=== PATIENT | female | born 1995 | race Caucasian/White ===

== ENCOUNTER 2021-01-29 07:50 | Emergency (ER) | payer MEDICAID ==
[2021-01-29 10:16] LABS: Bacteria,Urine 2+ /HPF (Negative); Bilirubin,Urine NEG (Negative); Blood,Urine NEG (Negative); Color,Urine Yellow (Yellow); Mucus,Urine 1+ /HPF; Protein,Urine <15 mg/dL mg/dL (Negative)
[2021-01-29 10:19] LABS: HCG Qualitative,Urine Negative (Negative)
[2021-01-29] MEDS ORDERED: LIDOCAINE-MPF (1%) 10 MG/1 ML VIAL 5 ML INFILTRATI ONE (10:22)
--- NOTE | 2021-01-29 10:27 | Emergency Department Report ---
ED General Adult HPI - General Chief complaint: Urogenital-Female Stated complaint: NAUSEA/VAGINAL DISCHARGE Time Seen by Provider: 01/29/21 10:21 Source: patient Mode of arrival: Ambulatory Limitations: No Limitations - History of Present Illness Initial comments: 25-year-old female patient presents with complaints of nausea without vomiting x1 month. She denies any history of GERD or heartburn symptoms, stool changes/melena/hematochezia, or abdominal pain. She states the nausea is intermittent, however she is still able to eat and drink. No alcohol abuse per patient. She also states her boyfriend tested positive for chlamydia and gonorrhea. She reports she has been having lower abdominal cramping and abnormal vaginal discharge for the past 2 weeks. No dyspareunia, vaginal bleeding, dysuria/hematuria/urinary frequency, or fever per patient. She also denies any past medical history - Related Data Previous Rx's Medication Instructions Recorded Last Taken Type Ferrous Sulfate [Feosol 325 MG tab] 325 mg PO BID #60 tablet 05/04/13 1 Week Ago Rx ~01/09/18 [id number]/Iron Fum/Folic/Docusate 1 each PO QDAY #30 tablet 05/04/13 1 Month Ago Rx [ 19 Tablet] ~12/16/17 Ferrous Sulfate [Feosol 325 MG tab] 325 mg PO BID #60 tablet 01/16/18 Unknown Rx HYDROcodone/APAP 5-325 [[place] 1 each PO Q6HR PRN #30 tablet 01/16/18 Unknown Rx 5/325] Ibuprofen [Motrin] 800 mg PO Q8HR PRN #30 tablet 01/16/18 Unknown Rx Vit Calc,Iron,Folic 1 each PO DAILY #30 tablet 01/16/18 Unknown Rx [ Vitamins] Doxycycline Monohydrate 100 mg PO BID 14 Days #28 tablet 01/29/21 Unknown Rx Famotidine [Pepcid] 20 mg PO BID 10 Days #20 tablet 01/29/21 Unknown Rx Ondansetron [Zofran Odt] 4 mg PO Q8HR PRN #15 tab.rapdis 01/29/21 Unknown Rx metroNIDAZOLE [Flagyl TAB] 500 mg PO Q12HR 7 Days #14 tab 01/29/21 Unknown Rx Allergies Allergy/AdvReac Type Severity Reaction Status Date / Time sulfamethoxazole AdvReac Hives Verified 01/29/21 09:15 [From Bactrim] trimethoprim [From Bactrim] AdvReac Hives Verified 01/29/21 09:15 ED Review of Systems ROS: Stated complaint: NAUSEA/VAGINAL DISCHARGE Other details as noted in HPI Constitutional: denies: chills, diaphoresis, fever, malaise Respiratory: denies: cough, shortness of breath Gastrointestinal: as per HPI, nausea. denies: vomiting, diarrhea, constipation Genitourinary: discharge. denies: urgency, dysuria, frequency, hematuria, abnormal menses, dyspareunia Musculoskeletal: denies: joint swelling, arthralgia Skin: denies: rash, lesions, change in color Neurological: denies: numbness, paresthesias Hematological/Lymphatic: denies: swollen glands ED Past Medical Hx - Past Medical History Hx Hypertension: No Hx Heart Attack/AMI: No Hx Congestive Heart Failure: No Hx Diabetes: No Hx Deep Vein Thrombosis: No Hx Pulmonary Embolism: No Hx Liver Disease: No Hx Renal Disease: No Hx Sickle Cell Disease: No Hx Headaches / Migraines: No Hx Seizures: No Hx Asthma: No Hx COPD: No Hx Tuberculosis: No Hx HIV: No - Social History Smoking Status: Never Smoker - Medications Home Medications: Home Medications Medication Instructions Recorded Confirmed Last Taken Type Ferrous Sulfate [Feosol 325 MG tab] 325 mg PO BID #60 tablet 05/04/13 01/16/18 1 Week Ago Rx ~01/09/18 [id number]/Iron Fum/Folic/Docusate 1 each PO QDAY #30 tablet 05/04/13 01/16/18 1 Month Ago Rx [ 19 Tablet] ~12/16/17 Ferrous Sulfate [Feosol 325 MG tab] 325 mg PO BID #60 tablet 01/16/18 Unknown Rx HYDROcodone/APAP 5-325 [[place] 1 each PO Q6HR PRN #30 tablet 01/16/18 Unknown Rx 5/325] Ibuprofen [Motrin] 800 mg PO Q8HR PRN #30 tablet 01/16/18 Unknown Rx Vit Calc,Iron,Folic 1 each PO DAILY #30 tablet 01/16/18 Unknown Rx [ Vitamins] Doxycycline Monohydrate 100 mg PO BID 14 Days #28 tablet 01/29/21 Unknown Rx Famotidine [Pepcid] 20 mg PO BID 10 Days #20 tablet 01/29/21 Unknown Rx Ondansetron [Zofran Odt] 4 mg PO Q8HR PRN #15 tab.rapdis 01/29/21 Unknown Rx metroNIDAZOLE [Flagyl TAB] 500 mg PO Q12HR 7 Days #14 tab 01/29/21 Unknown Rx ED Physical Exam - General Limitations: No Limitations General appearance: alert, in no apparent distress - Head Head exam: Present: atraumatic, normocephalic - Eye Eye exam: Present: normal appearance. Absent: scleral icterus - Respiratory Respiratory exam: Absent: respiratory distress - Cardiovascular Cardiovascular Exam: Present: regular rate, normal rhythm - GI/Abdominal GI/Abdominal exam: Present: soft, tenderness (Mild suprapubic), normal bowel sounds. Absent: distended, guarding, rebound, rigid - Extremities Exam Extremities exam: Present: normal inspection. Absent: joint swelling - Back Exam Back exam: Absent: CVA tenderness (R), CVA tenderness (L) - Neurological Exam Neurological exam: Present: alert, oriented X3 - Psychiatric Psychiatric exam: Present: normal affect, normal mood - Skin Skin exam: Present: warm, dry, intact, normal color. Absent: rash ED Course Vital Signs 01/29/21 07:55 Temperature 97.8 F Pulse Rate 74 Respiratory 15 Rate Blood Pressure 112/53 O2 Sat by Pulse 99 Oximetry ED Medical Decision Making - Medical Decision Making 25-year-old female patient presents with complaints of nausea without vomiting x1 month. She denies any history of GERD or heartburn symptoms, stool changes/melena/hematochezia, or abdominal pain. She states the nausea is intermittent, however she is still able to eat and drink. No alcohol abuse per patient. She also states her boyfriend tested positive for chlamydia and gonorrhea. She reports she has been having lower abdominal cramping and abnormal vaginal discharge for the past 2 weeks. No dyspareunia, vaginal bleeding, dysuria/hematuria/urinary frequency, or fever per patient. She also denies any past medical history Mild suprapubic tenderness to palpation noted on exam. Patient declines pelvic exam. Given history with positive contact with gonorrhea and chlamydia, will cover patient for gonorrhea, chlamydia, trichomoniasis, and PID. UA shows positive nitrites in elevated WBCs. She is afebrile and well-appearing on exam. Recommend follow-up with PCP concerning nausea. Discussed in great detail signs and symptoms that should prompt immediate return to the ED with patient who verbalizes understanding. Patient is also to follow-up with PCP or health department for further STI testing. Critical care attestation.: If time is entered above; I have spent that time in minutes in the direct care of this critically ill patient, excluding procedure time. ED Disposition Clinical Impression: STD exposure, Pelvic pain, Nausea Disposition: 01 HOME / SELF CARE / HOMELESS Is pt being admited?: No Condition: Stable Instructions: Gonorrhea, Chlamydia, Female, Preventing Sexually Transmitted Infections, Adult, Pelvic Pain, Female, [id number], Nausea, Adult, [id number] Additional Instructions: Please take the Zofran (nausea medication) 30 minutes prior to food intake. Please also ensure that you do eat at least 20 to 30 minutes prior to taking your antibiotics. If you develop new or worsening symptoms seek immediate emergency treatment. Prescriptions: Doxycycline Monohydrate 100 mg PO BID 14 Days #28 tablet metroNIDAZOLE [Flagyl TAB] 500 mg PO Q12HR 7 Days #14 tab Famotidine [Pepcid] 20 mg PO BID 10 Days #20 tablet Ondansetron [Zofran Odt] 4 mg PO Q8HR PRN #15 tab.rapdis PRN Reason: Nausea Referrals: [facility] [Provider Group] - 3-5 Days [facility] [Outside] - 3-5 Days
[2021-01-29 11:11] VITALS: BP 122/72
== END 2021-01-29 11:10 | disposition home or self-care (01) ==
LOC: ED 07:50
DX: Z20.2 Contact with and (suspected) exposure to infections with a predominantly sexual mode of transmission (principal); R10.2 Pelvic and perineal pain; R11.0 Nausea; Z88.2 Allergy status to sulfonamides
CPT/HCPCS: 81001; 81025; 87086; 96372; 99283; J0696; J3490

== ENCOUNTER 2021-03-23 11:40 | Emergency (ER) | payer SELFPAY ==
[2021-03-23] MEDS ORDERED: ONDANSETRON 4 MG/2 ML INJ IV ONE ×2 (12:24→18:03)
[2021-03-23] MEDS ORDERED: SODIUM CHLORIDE 0.9% 1000 ML 1,000 ML IV ONE (12:24)
[2021-03-23] MEDS ORDERED: THIAMINE 100 MG, FOLIC ACID 1 MG, MULTIPLE VITAMIN INJ, ADULT 10 ML in SODIUM CHLORIDE ... IV ONE (12:24)
[2021-03-23] MEDS ORDERED: LORazepam 2 MG/ML VIAL IV ONE (12:27)
--- NOTE | 2021-03-23 12:42 | Emergency Department Report ---
ED Alcohol HPI - General Chief Complaint: Alcohol Stated Complaint: SEIZURE Time Seen by Provider: 03/23/21 12:24 Source: patient Mode of arrival: Ambulatory Limitations: No Limitations - History of Present Illness Initial Comments: Patient is a 26-year-old female presents emergency room with complaints of "alcohol withdrawal." She states that she last drank alcohol yesterday. She states that she has been abusing alcohol since she was 14 years old. She states that she has been to rehab facilities in the past. She states her symptoms have been nausea, vomiting, diarrhea, tremors of the hands. She denies any fever, cough, shortness of breath, chest pain, abdominal pain. Patient states that she also used cocaine yesterday. She denies any SI, HI, hallucinations. She has an allergy to Bactrim. she states it "feels like she wants to have a seizure" but she has never had a seizure in the past. - Related Data Previous Rx's Medication Instructions Recorded Last Taken Type Ferrous Sulfate [Feosol 325 MG tab] 325 mg PO BID #60 tablet 05/04/13 1 Week Ago Rx ~01/09/18 [id number]/Iron Fum/Folic/Docusate 1 each PO QDAY #30 tablet 05/04/13 1 Month Ago Rx [ 19 Tablet] ~12/16/17 Ferrous Sulfate [Feosol 325 MG tab] 325 mg PO BID #60 tablet 01/16/18 Unknown Rx HYDROcodone/APAP 5-325 [Nettie 1 each PO Q6HR PRN #30 tablet 01/16/18 Unknown Rx 5/325] Ibuprofen [Motrin] 800 mg PO Q8HR PRN #30 tablet 01/16/18 Unknown Rx Vit Calc,Iron,Folic 1 each PO DAILY #30 tablet 01/16/18 Unknown Rx [ Vitamins] Doxycycline Monohydrate 100 mg PO BID 14 Days #28 tablet 01/29/21 Unknown Rx Famotidine [Pepcid] 20 mg PO BID 10 Days #20 tablet 01/29/21 Unknown Rx Ondansetron [Zofran Odt] 4 mg PO Q8HR PRN #15 tab.rapdis 01/29/21 Unknown Rx metroNIDAZOLE [Flagyl TAB] 500 mg PO Q12HR 7 Days #14 tab 01/29/21 Unknown Rx Ondansetron [Zofran Odt] 4 mg PO Q8HR PRN #10 tab.rapdis 03/23/21 Unknown Rx Allergies Allergy/AdvReac Type Severity Reaction Status Date / Time sulfamethoxazole AdvReac Hives Verified 03/23/21 12:29 [From Bactrim] trimethoprim [From Bactrim] AdvReac Hives Verified 03/23/21 12:29 ED Review of Systems ROS: Stated complaint: SEIZURE Other details as noted in HPI Comment: All other systems reviewed and negative ED Past Medical Hx - Past Medical History Previous Medical History?: Yes Hx Hypertension: No Hx Heart Attack/AMI: No Hx Congestive Heart Failure: No Hx Diabetes: No Hx Deep Vein Thrombosis: No Hx Pulmonary Embolism: No Hx Liver Disease: No Hx Renal Disease: No Hx Sickle Cell Disease: No Hx Headaches / Migraines: No Hx Seizures: No Hx Asthma: No Hx COPD: No Hx Tuberculosis: No Hx HIV: No - Surgical History Past Surgical History?: No - Social History Smoking Status: Never Smoker - Medications Home Medications: Home Medications Medication Instructions Recorded Confirmed Last Taken Type Ferrous Sulfate [Feosol 325 MG tab] 325 mg PO BID #60 tablet 05/04/13 01/16/18 1 Week Ago Rx ~01/09/18 [id number]/Iron Fum/Folic/Docusate 1 each PO QDAY #30 tablet 05/04/13 01/16/18 1 Month Ago Rx [ 19 Tablet] ~12/16/17 Ferrous Sulfate [Feosol 325 MG tab] 325 mg PO BID #60 tablet 01/16/18 Unknown Rx HYDROcodone/APAP 5-325 [Nettie 1 each PO Q6HR PRN #30 tablet 01/16/18 Unknown Rx 5/325] Ibuprofen [Motrin] 800 mg PO Q8HR PRN #30 tablet 01/16/18 Unknown Rx Vit Calc,Iron,Folic 1 each PO DAILY #30 tablet 01/16/18 Unknown Rx [ Vitamins] Doxycycline Monohydrate 100 mg PO BID 14 Days #28 tablet 01/29/21 Unknown Rx Famotidine [Pepcid] 20 mg PO BID 10 Days #20 tablet 01/29/21 Unknown Rx Ondansetron [Zofran Odt] 4 mg PO Q8HR PRN #15 tab.rapdis 01/29/21 Unknown Rx metroNIDAZOLE [Flagyl TAB] 500 mg PO Q12HR 7 Days #14 tab 01/29/21 Unknown Rx Ondansetron [Zofran Odt] 4 mg PO Q8HR PRN #10 tab.rapdis 03/23/21 Unknown Rx ED Physical Exam - General Limitations: No Limitations General appearance: alert, in no apparent distress - Head Head exam: Present: atraumatic, normocephalic - Eye Eye exam: Present: normal appearance - ENT ENT exam: Present: mucous membranes moist - Respiratory Respiratory exam: Present: normal lung sounds bilaterally. Absent: respiratory distress, wheezes, rales, rhonchi, stridor, chest wall tenderness, accessory muscle use, decreased breath sounds, prolonged expiratory - Cardiovascular Cardiovascular Exam: Present: normal rhythm, tachycardia - Neurological Exam Neurological exam: Present: alert, oriented X3 - Psychiatric Psychiatric exam: Present: normal affect, normal mood - Skin Skin exam: Present: warm, dry, intact ED Course Vital Signs 03/23/21 03/23/21 03/23/21 12:22 13:56 14:00 Temperature 98 F Pulse Rate 117 H 74 Respiratory 22 17 19 Rate Blood Pressure 121/74 Blood Pressure 128/79 [Right] O2 Sat by Pulse 96 98 Oximetry ED Medical Decision Making - Lab Data Result diagrams: 03/23/21 12:30 03/23/21 12:30 Lab Results 03/23/21 03/23/21 03/23/21 Range/Units 12:30 12:30 12:30 WBC 16.5 H (4.5-11.0) K/mm3 RBC 4.58 (3.65-5.03) M/mm3 Hgb 12.1 (10.1-14.3) gm/dl Hct 37.1 (30.3-42.9) % MCV 81 (79-97) fl MCH 27 L (28-32) pg MCHC 33 (30-34) % RDW 20.1 H (13.2-15.2) % Plt Count 375 (140-440) K/mm3 Lymph % (Auto) 7.6 L (13.4-35.0) % [place] % (Auto) 6.3 (0.0-7.3) % Eos % (Auto) 0.0 (0.0-4.3) % Baso % (Auto) 0.4 (0.0-1.8) % Lymph # (Auto) 1.3 (1.2-5.4) K/mm3 [place]ala # (Auto) 1.0 H (0.0-0.8) K/mm3 Eos # (Auto) 0.0 (0.0-0.4) K/mm3 Baso # (Auto) 0.1 (0.0-0.1) K/mm3 Seg Neutrophils % 85.7 H (40.0-70.0) % Seg Neutrophils # 14.2 H (1.8-7.7) K/mm3 Sodium 139 (137-145) mmol/L Potassium 3.5 L (3.6-5.0) mmol/L Chloride 99.0 (98-107) mmol/L Carbon Dioxide 22 (22-30) mmol/L Anion Gap 22 mmol/L BUN 8 (7-17) mg/dL Creatinine 0.5 L (0.6-1.2) mg/dL Estimated GFR > 60 ml/min BUN/Creatinine Ratio 16 % Glucose 122 H (65-100) mg/dL Calcium 8.7 (8.4-10.2) mg/dL Magnesium 1.70 (1.7-2.3) mg/dL Total Bilirubin 0.60 (0.1-1.2) mg/dL AST 61 H (5-40) units/L ALT 42 (7-56) units/L Alkaline Phosphatase 116 (35-129) units/L Total Protein 8.0 (6.3-8.2) g/dL Albumin 4.2 (3.9-5) g/dL Albumin/Globulin Ratio 1.1 % Lipase 15 (13-60) units/L HCG, Qual (Negative) Urine Color (Yellow) Urine Turbidity (Clear) Urine pH (5.0-7.0) Ur Specific [place] (1.003-1.030) Urine Protein (Negative) mg/dL Urine Glucose (UA) (Negative) mg/dL Urine Ketones (Negative) mg/dL Urine Blood (Negative) Urine Nitrite (Negative) Urine Bilirubin (Negative) Urine Urobilinogen (<2.0) mg/dL Ur Leukocyte Esterase (Negative) Urine WBC (Auto) (0.0-6.0) /HPF Urine RBC (Auto) (0.0-6.0) /HPF U Epithel Cells (Auto) (0-13.0) /HPF Urine Bacteria (Auto) (Negative) /HPF Urine Mucus /HPF Urine Opiates Screen Urine Methadone Screen Ur Barbiturates Screen Ur Phencyclidine Scrn Ur Amphetamines Screen U Benzodiazepines Scrn Urine Cocaine Screen U Marijuana (THC) Screen Drugs of Abuse Note Plasma/Serum Alcohol 0.04 (0-0.07) % 03/23/21 03/23/21 03/23/21 Range/Units 12:30 Unknown Unknown WBC (4.5-11.0) K/mm3 RBC (3.65-5.03) M/mm3 Hgb (10.1-14.3) gm/dl Hct (30.3-42.9) % MCV (79-97) fl MCH (28-32) pg MCHC (30-34) % RDW (13.2-15.2) % Plt Count (140-440) K/mm3 Lymph % (Auto) (13.4-35.0) % [place] % (Auto) (0.0-7.3) % Eos % (Auto) (0.0-4.3) % Baso % (Auto) (0.0-1.8) % Lymph # (Auto) (1.2-5.4) K/mm3 [place] # (Auto) (0.0-0.8) K/mm3 Eos # (Auto) (0.0-0.4) K/mm3 Baso # (Auto) (0.0-0.1) K/mm3 Seg Neutrophils % (40.0-70.0) % Seg Neutrophils # (1.8-7.7) K/mm3 Sodium (137-145) mmol/L Potassium (3.6-5.0) mmol/L Chloride (98-107) mmol/L Carbon Dioxide (22-30) mmol/L Anion Gap mmol/L BUN (7-17) mg/dL Creatinine (0.6-1.2) mg/dL Estimated GFR ml/min BUN/Creatinine Ratio % Glucose (65-100) mg/dL Calcium (8.4-10.2) mg/dL Magnesium (1.7-2.3) mg/dL Total Bilirubin (0.1-1.2) mg/dL AST (5-40) units/L ALT (7-56) units/L Alkaline Phosphatase (35-129) units/L Total Protein (6.3-8.2) g/dL Albumin (3.9-5) g/dL Albumin/Globulin Ratio % Lipase (13-60) units/L HCG, Qual Negative (Negative) Urine Color [place] (Yellow) Urine Turbidity Slightly-cloudy (Clear) Urine pH 6.0 (5.0-7.0) Ur Specific [place] 1.019 (1.003-1.030) Urine Protein 30 mg/dl (Negative) mg/dL Urine Glucose (UA) Neg (Negative) mg/dL Urine Ketones Tr (Negative) mg/dL Urine Blood Neg (Negative) Urine Nitrite Neg (Negative) Urine Bilirubin Neg (Negative) Urine Urobilinogen < 2.0 (<2.0) mg/dL Ur Leukocyte Esterase Neg (Negative) Urine WBC (Auto) 3.0 (0.0-6.0) /HPF Urine RBC (Auto) 3.0 (0.0-6.0) /HPF U Epithel Cells (Auto) 15.0 H (0-13.0) /HPF Urine Bacteria (Auto) 2+ (Negative) /HPF Urine Mucus 3+ /HPF Urine Opiates Screen Negative Urine Methadone Screen Negative Ur Barbiturates Screen Negative Ur Phencyclidine Scrn Negative Ur Amphetamines Screen Negative U Benzodiazepines Scrn Negative Urine Cocaine Screen Positive U Marijuana (THC) Screen Negative Drugs of Abuse Note Disclamer Plasma/Serum Alcohol (0-0.07) % Vital Signs (72 hours) 03/23/21 03/23/21 03/23/21 12:22 13:56 14:00 Temperature 98 F Pulse Rate 117 H 74 Respiratory 22 17 19 Rate Blood Pressure 121/74 Blood Pressure 128/79 [Right] O2 Sat by Pulse 96 98 Oximetry - Medical Decision Making Patient is a 26-year-old female presents emergency room with complaints of "alcohol withdrawal." She states that she last drank alcohol yesterday. She states that she has been abusing alcohol since she was 14 years old. She states that she has been to rehab facilities in the past. She states her symptoms have been nausea, vomiting, diarrhea, tremors of the hands. She denies any fever, cough, shortness of breath, chest pain, abdominal pain. Patient states that she also used cocaine yesterday. She denies any SI, HI, hallucinations. She has an allergy to Bactrim. she states it "feels like she wants to have a seizure" but she has never had a seizure in the past. Initial vitals with tachycardia which improved upon repeat. Patient does have some tremoring of the bilateral hands. Labs with white blood cell count of 16.5, I believe this is likely stress reaction from patient's frequent vomiting, she has no abdominal tenderness, no fever, no UTI, do not suspect bacterial infection. AST mildly elevated at 61 likely consistent with her alcohol use. UDS is positive for cocaine. Patient given 1 L normal saline, banana bag, Zofran, 1 mg of Ativan an d her symptoms have completely resolved. I gave patient a cup of ice water and she was able to tolerate p.o. intake with no difficulty and had no further episodes of vomiting. Patient has had no observed seizure-like activity. She has no hypertension, her tachycardia has resolved, do not suspect emergent withdrawals. Advised patient Please take medication as prescribed. Increase your fluid intake. Please stop drinking alcohol and using drugs. Please follow-up with your primary care doctor. You have been given a list of outpatient rehabilitation centers. Return to emergency room for any new or worsening symptoms. Critical care attestation.: If time is entered above; I have spent that time in minutes in the direct care of this critically ill patient, excluding procedure time. ED Disposition Clinical Impression: Alcohol abuse, Cocaine abuse, Nausea vomiting and diarrhea Disposition: 01 HOME / SELF CARE / HOMELESS Is pt being admited?: No Does the pt Need Aspirin: No Condition: Stable Instructions: Alcohol Abuse and Dependence Information, Adult, Nausea and Vomiting, Adult, [id number] Additional Instructions: Please take medication as prescribed. Increase your fluid intake. Please stop drinking alcohol and using drugs. Please follow-up with your primary care doctor. You have been given a list of outpatient rehabilitation centers. Return to emergency room for any new or worsening symptoms. Prescriptions: Ondansetron [Zofran Odt] 4 mg PO Q8HR PRN #10 tab.rapdis PRN Reason: nausea/vomiting Referrals: [facility] [Outside] - 3-5 Days JASMIN LAZARO MD [Staff Physician] - 3-5 Days [facility] [Provider Group] - 3-5 Days Time of Disposition: 13:52 Print Language: URDU
[2021-03-23 13:15] LABS: Basophils # (Auto) 0.1 K/mm3 (0.0-0.1); Basophils % (Auto) 0.4 % (0.0-1.8); Hematocrit 37.1 % (30.3-42.9); Hemoglobin 12.1 gm/dl (10.1-14.3); Lymphocytes # (Auto) 1.3 K/mm3 (1.2-5.4); Lymphocytes % (Auto) 7.6 % (13.4-35.0); Mean Corpuscular HGB Conc 33 % (30-34); Mean Corpuscular Volume 81 fl (79-97); Monocytes % (Auto) 6.3 % (0.0-7.3); Platelet Count 375 K/mm3 (140-440); Red Blood Count 4.58 M/mm3 (3.65-5.03)
[2021-03-23 13:18] LABS: Red Cell Distribution Width 20.1 % (13.2-15.2)
[2021-03-23 13:24] LABS: Amphetamine Screen,Urine Negative; Benzodiazepines Screen,Urine Negative; Cannabinoid Screen,Urine Negative; Methadone Screen,Urine Negative; Opiate Screen,Urine Negative
[2021-03-23 13:27] LABS: Bacteria,Urine 2+ /HPF (Negative); Bilirubin,Urine NEG (Negative); Blood,Urine NEG (Negative); Color,Urine Amber (Yellow); Mucus,Urine 3+ /HPF; Urobilinogen,Urine < 2.0 mg/dL (<2.0)
[2021-03-23 13:36] LABS: Alanine Aminotransferase 42 units/L (7-56); Albumin 4.2 g/dL (3.9-5); Blood Urea Nitrogen 8 mg/dL (7-17); Calcium 8.7 mg/dL (8.4-10.2); Hemolysis Index 1
[2021-03-23 13:37] LABS: BUN/Creatinine Ratio 16
[2021-03-23 13:42] LABS: Cocaine Screen,Urine Positive
[2021-03-23 18:02] VITALS: BP 109/58
== END 2021-03-23 18:25 | disposition home or self-care (01) ==
LOC: ED 11:40
DX: F10.10 Alcohol abuse, uncomplicated (principal); R11.2 Nausea with vomiting, unspecified; R19.7 Diarrhea, unspecified; F14.10 Cocaine abuse, uncomplicated; Z88.8 Allergy status to other drugs, medicaments and biological substances; Z88.2 Allergy status to sulfonamides; Z79.899 Other long term (current) drug therapy; Y90.9 Presence of alcohol in blood, level not specified
CPT/HCPCS: 36415; 80053; 80307; 81001; 83690; 83735; 84703; 85025; 87086; 96365; 96366; 96375; 96376; 99283; J2060; J2405; J3411; J3490; J7030; 80320; Q0162; G0480